=== PATIENT | female | born 1965 | race Two or more races ===

== ENCOUNTER 2022-08-09 19:30 | Emergency (ER) | payer BC, OTHER ==
[~2022-08-09] VITALS: Ht 144.8 cm; Wt 63.5 kg
[2022-08-09 20:12] VITALS: BP 141/68
--- NOTE | 2022-08-09 20:18 | NUR ---
WALKED IN C/O LEFT ARM, SHOULDER PAIN S/P MECHANICAL TRIP AND FALL TODAY. PT UNABLE TO MOVE ARM. +NUMBNESS AND TINGLING. +GUARDING EXTREMITY. NO OBVIOUS DEFORMITY NOTED. 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 PMH DM, HTN.
--- NOTE | 2022-08-09 22:45 | NUR ---
PT AMBULATED TO ED 6, PT C/O LEFT ARM AND ELBOW PAIN S/P FALL, PT TRIPPED AND LANDED ON LEFT ARM. NO DEFORMITY OBSERVED, +PMSC IN LEFT ARM.
[2022-08-09] MEDS ORDERED: IBUP-1878 PO (22:58)
[2022-08-09] MEDS ORDERED: HYDROcodone/APAP 5/325 MG 1 TAB TAB PO ONE (23:00)
[2022-08-09] MEDS ORDERED: KETOROLAC 30 MG/ML VIAL IM ONE (23:00)
--- NOTE | 2022-08-09 23:41 | NUR ---
Patient discharged with v/s stable. Written and verbal after care instructions given and explained. Patient alert, oriented and verbalized understanding of instructions. Ambulatory with steady gait. All questions addressed prior to discharge. ID band removed. Patient advised to follow up with PMD. Rx SENT TO PHARMACY. Patient educated on indication of medication including possible reaction and side effects. Opportunity to ask questions provided and answered.
[2022-08-09 23:42] VITALS: BP 130/72
== END 2022-08-09 23:41 | disposition home or self-care (01) ==
LOC: MED 19:30
DX: S49.92XA Unspecified injury of left shoulder and upper arm, initial encounter (principal); Z79.899 Other long term (current) drug therapy; W01.0XXA Fall on same level from slipping, tripping and stumbling without subsequent striking against object, initial encounter; Y93.89 Activity, other specified; Y92.89 Other specified places as the place of occurrence of the external cause; Y99.8 Other external cause status
CPT/HCPCS: 73030; 73080; 73110; 96372; 99284; J1885